=== PATIENT | female | born 1960 | race Two or more races ===

== ENCOUNTER 2021-10-30 00:45 | Emergency (ER) | payer OTHER ==
[~2021-10-30] VITALS: Ht 167.6 cm; Wt 55.8 kg
--- NOTE | 2021-10-30 00:48 | NUR ---
LINO 87 FROM HOME FOR AN EPISDOE OF CHEST AND LUE DISCOMFORT AND N/V S/P GOT IN TO ARGUMENT WITH THE . N0 C/O PAIN ON TRIAGE. PATIENT ALERT AND ORIENTED X3. AMBULATORY WITH NON LABORED BREATHING PATIENT PLACED IN BED 04 ON MONITOR AND POX.
--- NOTE | 2021-10-30 01:12 | NUR ---
BLOOD COLLECTED AND SENT TO LAB
--- NOTE | 2021-10-30 01:13 | NUR ---
LFA #20G S/L; PATENT AND INTACT. PT DENIES PAIN AT THIS TIME. ALL NEEDS MET
--- NOTE | 2021-10-30 01:18 | NUR ---
SUPERINTENDENT COLLIERY AT PT'S BEDSIDE
[2021-10-30 01:24] LABS: BASOPHILS % (AUTO) 0.8 % (0.0-2.0); EOSINOPHILS % (AUTO) 1.7 % (0.0-6.0); HEMATOCRIT 36 % (33-45); HEMOGLOBIN 12.3 g/dL (11.5-14.8); LYMPHOCYTES # (AUTO) 2.6 K/uL (0.8-4.8); LYMPHOCYTES % (AUTO) 45.9 % (20.0-44.0); MEAN CORPUSCULAR HGB CONC 34 g/dl (31.0-36.0); MEAN CORPUSCULAR VOLUME 91 fL (82-100); MONOCYTES # (AUTO) 0.6 K/uL (0.1-1.30); MONOCYTES % (AUTO) 11.4 % (2.0-12.0); NEUTROPHILS # (AUTO) 2.3 K/uL (1.8-8.9); NEUTROPHILS % (AUTO) 40.2 % (43.0-81.0); PLATELET COUNT (AUTO) 237 K/uL (150-450); RED BLOOD CELL COUNT(AUTO) 3.95 MIL/uL (4.0-5.2); WHITE BLOOD COUNT (AUTO) 5.7 K/uL (4.3-11.0)
[2021-10-30 01:58] LABS: CALCIUM, SERUM 9.2 mg/dL (8.5-10.1); CARBON DIOXIDE 28 mmol/L (21-32); CHLORIDE 104 mmol/L (98-107); CREATININE 0.8 mg/dL (0.6-1.3); GLUCOSE 123 mg/dL (74-106); POTASSIUM 3.8 mmol/L (3.5-5.1); SODIUM SERUM 140 mmol/L (136-145); UREA NITROGEN, BLOOD 30 mg/dL (7-18)
--- NOTE | 2021-10-30 02:39 | NUR ---
Patient discharged to home in stable condition. Written and verbal after care instructions given. Patient verbalizes understanding of instruction. PT ambulatory with a steady gait
[2021-10-30 02:40] VITALS: BP 128/88
== END 2021-10-30 02:40 | disposition home or self-care (01) ==
LOC: EDBD 00:46 → ER 00:46
DX: R07.89 Other chest pain (principal); Z88.8 Allergy status to other drugs, medicaments and biological substances
CPT/HCPCS: 36415; 71045-TC; 80048-TC; 83880; 84484-TC; 85025-TC